=== PATIENT | female | born 1990 | race American Indian/Alaskan Native ===

== ENCOUNTER 2022-03-04 12:50 | Emergency (ER) | payer MEDICAID ==
--- NOTE | 2022-03-04 13:52 | Emergency Department Report ---
- General Chief Complaint: Laceration/Recheck/Suture Stated Complaint: CUT ON RT ANKLE Time Seen by Provider: 03/04/22 13:50 Source: patient Mode of arrival: Ambulatory Limitations: No Limitations - History of Present Illness Initial Comments: 31 YO COMES TO ER P CUTTING RIGHT ANKLE AT HOME ON A COOKING STOKES. AMBULATORY MINIMAL BLEEDING NEEDS TDAP UPDATED PT WAS COOKING AND A STOKES FELL OFF A SHELF HITTING HER ANKLE AND CUTTING IT. -: Sudden, hour(s) Location: other Place: home Patient Tetanus UTD: No Context: accidental Associated Symptoms: none - Related Data Allergies Allergy/AdvReac Type Severity Reaction Status Date / Time No Known Allergies Allergy Verified 03/04/22 14:15 ED Review of Systems ROS: Stated complaint: CUT ON RT ANKLE Other details as noted in HPI Comment: All other systems reviewed and negative ED Past Medical Hx - Past Medical History Previous Medical History?: No - Surgical History Past Surgical History?: No - Family History Family history: no significant - Social History Smoking Status: Never Smoker Substance Use Type: None ED Physical Exam - General Limitations: No Limitations General appearance: alert, in no apparent distress - Head Head exam: Present: atraumatic, normocephalic - Eye Eye exam: Present: normal appearance - ENT ENT exam: Present: mucous membranes moist - Neck Neck exam: Present: normal inspection - Respiratory Respiratory exam: Present: normal lung sounds bilaterally. Absent: respiratory distress - Cardiovascular Cardiovascular Exam: Present: regular rate, normal rhythm. Absent: systolic murmur, diastolic murmur, rubs, gallop - GI/Abdominal GI/Abdominal exam: Present: soft, normal bowel sounds - Extremities Exam Extremities exam: Present: normal inspection - Back Exam Back exam: Present: normal inspection - Neurological Exam Neurological exam: Present: alert, oriented X3 - Psychiatric Psychiatric exam: Present: normal affect, normal mood - Skin Skin exam: Present: warm, dry, intact, normal color, other. Absent: rash - Expanded Skin Exam Expanded 1 - 1 CM AVULSION WOUND TO BACK OF ANKLE ED Course Vital Signs 03/04/22 13:47 Temperature 98.6 F Pulse Rate 83 Respiratory 18 Rate Blood Pressure 134/69 [Left] O2 Sat by Pulse 98 Oximetry - Laceration /Wound Repair ANKLE, R Wound Location: lower extremity Wound Length (cm): 1 Wound's Depth, Shape: superficial Wound Explored: clean Irrigated w/ Saline (ccs): 100 Betadine Prep?: Yes Wound Debrided: minimal Wound Repaired With: Steri-strips Layer Closure?: No Sterile Dressing Applied?: Yes Progress: TOLERATED WELL ED Medical Decision Making - Medical Decision Making WOUND CLEANED AND REPAIRED DRESSING APPLIED TDAP GIVEN BY LISA IN R DELTOID Vital Signs 03/04/22 13:47 Temperature 98.6 F Pulse Rate 83 Respiratory 18 Rate Blood Pressure 134/69 [Left] O2 Sat by Pulse 98 Oximetry PT EDUCATED ON WOUND CARE. REMAINS NEUROVASC INTACT ON D/C PT DC HOME WITH DC PLAN OF CARE INCLUDING DIET, MEDS, ACTIVITY AND FOLLOW UP. SHE VERBALIZES UNDERSTANDING OF PLAN OF CARE. - Differential Diagnosis LAC Critical care attestation.: If time is entered above; I have spent that time in minutes in the direct care of this critically ill patient, excluding procedure time. ED Disposition Clinical Impression: Laceration Disposition: 01 HOME / SELF CARE / HOMELESS Is pt being admited?: No Does the pt Need Aspirin: No Condition: Stable Additional Instructions: motrin or tylenol for pain keep wound clean and dry Referrals: SEAN MENARD MD [Staff Physician] - 3-5 Days Forms: Work/School Release Form(ED) Time of Disposition: 13:51
[2022-03-04 14:01] VITALS: BP 134/69
[2022-03-04] MEDS ORDERED: TETANUS,DIPH,PERTUSS(ACELL) VACCINE 0.5 ML SYRINGE IM ONE (15:00)
== END 2022-03-04 15:00 | disposition home or self-care (01) ==
LOC: ED 12:50
DX: S91.011A Laceration without foreign body, right ankle, initial encounter (principal); W45.8XXA Other foreign body or object entering through skin, initial encounter; Y93.89 Activity, other specified; Y92.89 Other specified places as the place of occurrence of the external cause; Y99.8 Other external cause status
CPT/HCPCS: 90471; 90715; 99282